=== PATIENT | male | born 1965 | race Caucasian/White ===

== ENCOUNTER → 2020-01-01 | Outpatient (CLI) | payer OTHER | LOC: SJCVCIMAG 10:29 | DX: R94.31 Abnormal electrocardiogram [ECG] [EKG] (principal); R07.89 Other chest pain; E78.5 Hyperlipidemia, unspecified; R53.83 Other fatigue ==

== ENCOUNTER → 2020-06-06 | Outpatient (CLI) | payer OTHER | LOC: LAB 08:01 | PROVIDERS: ATTEND Internal Medicine | DX: Z01.812 Encounter for preprocedural laboratory examination (principal); Z11.59 Encounter for screening for other viral diseases ==

== ENCOUNTER → 2020-06-10 | Outpatient (CLI) | payer OTHER ==
[~2020-06-10] VITALS: Ht 175.3 cm; Wt 79.4 kg
[~2020-06-10] MED LIST: ASA81BEC PO; CRESTOR10 MG PO
[2020-06-10 07:18] VITALS: BP 148/96
--- NOTE | 2020-06-10 09:00 | CATHLAB ---
[facility] [place] [address] INVASIVE PROCEDURE REPORT Name: CHIKI PEREZ Room #: REG LYUBOV Cervantes.#: [id number] Admission: 06/10/20 Attend Phys: Erick Robison MD, Discharge: Date of : 65 Report #: [id number] THIS REPORT FOR: cc: Mamadou Stratton MD, John H. MD Lundgren, Craig H. 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 The Right Groin^ was infiltrated with 1% Lidocaine subcutaneous anesthesia. A PINNACLE 6FR Sheath #[id number] sheath was inserted into the RFA^. Coronary angiography was performed using coronary diagnostic catheters. The right coronary system was accessed and visualized with a JR4 catheter. The left coronary system was accessed and visualized with a JL4 catheter. The left ventricle was accessed and visualized with a PIGTAIL catheter. Left ventriculogram was performed in 30 degree projection. Closure device was deployed with a 6 Fr MYNXGRIP 6/7F #[id number]. The patient tolerated the procedure well and there were no complications associated with the procedure. There was no hematoma. Intraoperative Conscious Sedation Sedation start time: 809 Case end Time: 835 [facility] [place] [address] INVASIVE PROCEDURE REPORT Name: CHIKI PEREZ Room #: REG [facility]#: [id number] Admission: 06/10/20 Attend Phys: Erick Robison, Discharge: Date of : 65 Report #: [id number] Fentanyl 50 mcg Versed 1 mg Fluoro Time: 3.10 minutes Dose: DAP 4328.50 cGycm2 518 mGy Contrast Type and Amount: Omnipaque 85 ml Coronary Angiography The patient's coronary anatomy is right dominant. Diagnostic Cath Left Main Normal left main LAD Normal left anterior descending extending to the inferior apex Diagonal 1 Large, single diagonal branch, angiographically normal Circumflex Large, nondominant circumflex. OM1 Large normal first marginal branch, angiographically normal OM2 Distally rising second marginal branch, angiographically normal Right Coronary Dominant, angiographically normal right coronary R PDA Normal posterior descending branch Left Ventriculography The left ventricle is normal in size with normal contractility. The left ventricular ejection fraction is estimated to be 65-70%. Left ventricular wall motion abnormalities are not present. There is no mitral insufficiency. Hemodynamics The aortic pressure is 161/91 mmHg with a mean of 105 mmHg. The left ventricular pressure is 173/-8 mmHg with a mean of mmHg. The left ventricular end diastolic pressure is 15 mmHg. Conclusion 1. Normal global and regional left ventricular systolic function. EF 65% 2. Normal left main 3. Normal coronary vasculature. Right coronary dominant circulation <ELECTRONICALLY SIGNED> By: Erick Robison MD, FACC 06/10/20858 8 8 Erick Robison MD, FACC /INF
== END | disposition home or self-care (01) ==
LOC: LAB 06-06 12:09 → CATH 06-06 14:53
PROVIDERS: ATTEND Internal Medicine
DX: R07.9 Chest pain, unspecified (principal); E78.00 Pure hypercholesterolemia, unspecified; Z98.890 Other specified postprocedural states; Z79.899 Other long term (current) drug therapy; Z79.82 Long term (current) use of aspirin